=== PATIENT | female | born 1980 | race Hispanic/Latino ===

== ENCOUNTER 2021-01-25 17:28 | Emergency (ER) | payer OTHER ==
[~2021-01-25] VITALS: Ht 170.2 cm; Wt 85.3 kg
[2021-01-25] MEDS ORDERED: LOSARTAN POTAS100 MG PO (17:48)
[2021-01-25] MEDS ORDERED: HYDROCHLOROTHIA25 MG PO (17:48)
[2021-01-25] MEDS ORDERED: DOXYCYCLINE MO100 M1 PO (17:55)
[2021-01-25] MEDS ORDERED: IBUPROFEN IB200 MG PO (17:55)
== END 2021-01-25 17:59 | disposition home or self-care (01) ==
LOC: FSED 17:48
DX: R10.2 Pelvic and perineal pain (principal); N93.9 Abnormal uterine and vaginal bleeding, unspecified
CPT/HCPCS: 81003; 81025; 99283